=== PATIENT | female | born 1975 ===

== ENCOUNTER 2022-03-09 11:52 | Outpatient (CLI) | payer BC | END 2022-03-09 11:53 | disposition home or self-care (01) | LOC: CSHMAMMO 11:52 | PROVIDERS: ATTEND Family Medicine | DX: Z12.31 Encounter for screening mammogram for malignant neoplasm of breast (principal); N63.21 Unspecified lump in the left breast, upper outer quadrant; Z80.3 Family history of malignant neoplasm of breast | CPT/HCPCS: 77063; 77067 ==